=== PATIENT | male | born 1965 | race Caucasian/White ===

== ENCOUNTER 2018-07-21 06:58 | Emergency (ER) | payer OTHER ==
[~2018-07-21] VITALS: Ht 175.3 cm; Wt 118.0 kg
[2018-07-21] MEDS ORDERED: SOD CHLORIDE 0.9% 1,000 ML IV STA (07:07)
[2018-07-21] MEDS ORDERED: PANTOPRAZOLE IV 80 MG in SOD CHLORIDE 0.9% 100 ML IVPB STA (07:07)
[2018-07-21] MEDS ORDERED: FAMOTIDINE 20 MG INJ IV STA (07:07)
[2018-07-21] MEDS ORDERED: ONDANSETRON 4 MG INJ IV STA (07:07)
[2018-07-21] MEDS ORDERED: HYDROmorphONE 1 MG/ML SYG IV STA (07:07)
[2018-07-21] MEDS ORDERED: SOD CHLORIDE 0.9% 100 ML ONE (07:23)
[2018-07-21] MEDS ORDERED: IODIXANOL LOCM 100 ML BTL ONE (07:23)
--- NOTE | 2018-07-21 07:30 | ERD ---
ER Documentation Chief Complaint Chief Complaint HPI This is a 52-year-old male with a past medical history of hypertension. The pat becky presents to the emergency department complaining of severe abdominal pain that has been intermittent for the past 24 hours. The patient was at work when he suddenly developed a worsening of the abdominal pain. He stated it was localized around the umbilicus. The pain began to radiate to both the left and the right lower quadrant. He states the pain is 10 out of 10 in intensity. The patient had an episode of nonbloody nonbilious emesis. The patient was brought in by EMS. Initially they stated that the patient had an episode of bloody emesis however the patient states he did not experience any blood in his emesis but rather had developed a bloody nose that resolved with pressure. The patient denies any history of alcohol abuse. The patient indicates he has had similar pain in the past but had never lasted this long or this intense. He did not take any analgesic medication prior to arrival. There is no alleviating or exacerbating factors to the pain. He said no recent fever shaking or chills. He denies a productive or nonproductive cough ROS All systems reviewed and are negative except as per history of present illness. Medications Home Meds Active Scripts Naproxen* (Naprosyn*) 500 Mg Tablet, 500 MG PO BID PRN for PAIN AND/OR INFLAMMATION, #30 TAB Prov:CJ GOEL MD 07/21/18 Reported Medications Lisinopril* (Lisinopril*) 20 Mg Tablet, 20 MG PO DAILY, #30 TAB 07/21/18 Allergies Allergies: Coded Allergies: No Known Allergy (Unverified , 07/21/18) Physical Exam Vitals Vital Signs Date Temp Pulse Resp B/P (MAP) Pulse Ox O2 O2 Flow FiO2 Time Delivery Rate 07/21/18 98.3 74 17 130/90 96 Room Air 07:46 (103) 07/21/18 98.3 93 17 130/90 98 07:46 (103) Physical Exam Constitutional:Well-developed. Well-nourished. Patient appear to be in a significant amount of discomfort secondary to pain HEENT:Normocephalic. Atraumatic.Pupils were equal round reactive to light. Moist mucous membranes.No tonsillar exudates. Neck: No nuchal rigidity. No lymphadenopathy. No posterior cervical spine tenderness or step-offs. Respiratory: Not using accessory muscles of respiration.Lungs were clear to auscultation bilaterally. No rhonchi. No rales. No wheezing. Cardiovascular: Regular rate regular rhythm.No murmurs. No rubs were appreciated.S1, S2 normal. Distal pulses are palpable 2+ bilaterally. GI: Abdomen was obese with a reducible umbilical hernia.. Voluntary guarding. Hypoactive bowel sounds. Tenderness in the periumbilical region. No tenderness in the right lower quadrant over McBurney's point. Psoas sign negative. Obturator sign negative. Non Distended. No pulsatile abdominal masses or bruits. No rebound. Muscle skeletal: Full range of motion of both the upper and lower extremities bilaterally.Normal muscle tone.No assymetrical calf tenderness or swelling. Skin: No petechia, no purpura. No lesions on the palms or the soles of the feet. No maculopapular rash. NEURO: Patient was alert, awake, orientated x3.No facial droop. Gait observed and normal with no ataxia.Speech had regular rate and rhythm. No focal neurological deficits. Result Diagram: 07/21/1872907/21/1830 Results 24 hrs Laboratory Tests Test 07/21/18 07:30 07/21/18 07:56 White Blood Count 4.8 10^3/ul Red Blood Count 4.98 10^6/ul Hemoglobin 14.8 g/dl Hematocrit 44.5 % Mean Corpuscular Volume 89.4 fl Mean Corpuscular Hemoglobin 29.7 pg Mean Corpuscular Hemoglobin Concent 33.3 g/dl Red Cell Distribution Width 14.4 % Platelet Count 230 10^3/UL Mean Platelet Volume 11.4 fl Immature Granulocytes % 0.200 % Neutrophils % 53.7 % Lymphocytes % 36.1 % Monocytes % 7.7 % Eosinophils % 1.7 % Basophils % 0.6 % Nucleated Red Blood Cells % 0.0 /100WBC Immature Granulocytes # 0.010 10^3/ul Neutrophils # 2.6 10^3/ul Lymphocytes # 1.7 10^3/ul Monocytes # 0.4 10^3/ul Eosinophils # 0.1 10^3/ul Basophils # 0.0 10^3/ul Nucleated Red Blood Cells # 0.0 10^3/ul Prothrombin Time 13.3 Sec Prothrombin Time Ratio 1.0 INR International Normalized Ratio 1.00 Activated Partial Thromboplast Time 25.2 Sec Sodium Level 140 mmol/L Potassium Level 4.0 mmol/L Chloride Level 110 mmol/L Carbon Dioxide Level 24 mmol/L Anion Gap 6 Blood Urea Nitrogen 17 mg/dl Creatinine 0.84 mg/dl Est Glomerular Filtrat Rate mL/min > 60 mL/min Glucose Level 114 mg/dl Calcium Level 8.8 mg/dl Total Bilirubin 0.1 mg/dl Direct Bilirubin 0.00 mg/dl Indirect Bilirubin 0.1 mg/dl Aspartate Amino Transf (AST/SGOT) 33 IU/L Alanine Aminotransferase (ALT/SGPT) 38 IU/L Alkaline Phosphatase 109 IU/L Troponin I < 0.012 ng/ml Total Protein 7.4 g/dl Albumin 4.1 g/dl Globulin 3.30 g/dl Albumin/Globulin Ratio 1.24 Amylase Level 73 U/L Lipase 53 U/L POC Venous Lactate 0.8 mmol/L Current Medications Medications Dose Sig/Fani Start Time Status Last (Trade) Ordered Route PRN Stop Time Admin Dose Reason Admin Sodium 1,000 ml @ Q1H STAT 07/21/18 DC 07/21/18 Chloride 1,000 mls/hr IV 07:07 07:17 07/21/18 08:06 1 mg ONCE STAT 07/21/18 DC 07/21/18 Hydromorphone IV 07:07 07:18 HCl 07/21/18 07:08 (Dilaudid) Ondansetron 4 mg ONCE STAT 07/21/18 DC 07/21/18 HCl (Zofran IV 07:07 07:17 Inj) 07/21/18 07:09 Famotidine 20 mg ONCE STAT 07/21/18 DC 07/21/18 (Pepcid Iv) IV 07:07 07:17 07/21/18 07:09 Pantoprazole 100 ml @ ONCE STAT 07/21/18 DC 07/21/18 80 mg/Sodium 400 mls/hr IVPB 07:07 08:01 Chloride 07/21/18 07:21 IV Flush 10 ml STK-MED 07/21/18 DC 07/21/18 (NS 10 ml) ONCE .ROUTE 07:23 07:37 07/21/18 07:24 Sodium 100 ml @ ud STK-MED 07/21/18 DC 07/21/18 Chloride ONCE .ROUTE 07:23 07:37 07/21/18 07:24 Iodixanol 100 ml STK-MED 07/21/18 DC 07/21/18 (Visipaque ONCE .ROUTE 07:23 07:37 Locm) 07/21/18 07:24 Procedures/MDM This patient presented to the emergency department with abdominal pain and was seen and evaluated by myself. My differential diagnosis included but was not limited to abdominal aortic aneurysm, appendicitis, pancreatitis, perforated peptic ulcer, perforated viscus, Boerhaave's syndrome or visceral pain such as diverticulitis, DKA, esophagitis, hepatitis or bowel obstruction. The patient was placed on a school lunch monitor, continuous pulse oximetry, and IV access was established by nursing staff. Patient was given intravenous Dilaudid for analgesic control. Due to the severity of the patient's pain with voluntary guarding I did indicate to the optical manufacturing technician that the patient would require going to CT scan immediately prior to receiving the patient's BUN and creatinine. CT scan was reviewed by myself and the radiologist indicate the followin. Large 4 cm calcified gallstone with an otherwise unremarkable gallbladder and no biliary ductal dilation. 2. Diverticulosis of the left colon without CT evidence diverticulitis. Unremarkable appendix. 3. Periumbilical fat-containing hernia without herniated bowel or strangulation. I obtained a twelve-lead EKG tracing to rule out for atypical myocardial infar ction. 12 Lead EKG tracing ordered and reviewed by myself showed: Normal sinus rhythm of 73 bpm and no arrhythmia. MI interval normal. QRS duration normal. No ST segment elevation No ST segment depression. No changes consistent with acute ischemia. The patient's pain had significantly improved. I indicates the patient symptoms result of diverticulosis. There is no signs of strangulation of his hernia as it was easily reducible. The patient was discharged home in fair condition. They were instructed to return to the emergency department at any time if there was any worsening of their condition. The patient stated they would follow up with their PCP in the next 24-48 hours to initiate a suitable medication regimen under the care of their PCP as well as to allow their PCP to monitor any drug reactions. The patient was discharged home with prescriptions after they gave informed consent to the new medication. They were also fully informed by myself on the adverse effects and adverse drug interactions in order to provide adequate safeguards to prevent possible adverse reactions to medications. Departure Diagnosis: Primary Impression: Diverticulosis of colon Condition: CJ Gannon MD Jul 21, 2018 07:30
[2018-07-21 07:46] VITALS: Ht 175.3 cm; Wt 118.0 kg
[2018-07-21] MEDS ORDERED: LISI-471 PO (07:50)
[2018-07-21] MEDS ORDERED: NAPR-985 PO (08:22)
[2018-07-21 08:58] VITALS: BP 114/80; PULSE 80; RESP 23
[2018-07-21] MEDS ORDERED: LIDOCAINE/MYLANTA 40 ML BTL PO STA (08:59)
[2018-07-21] MEDS ORDERED: BELLADONNA/PHENOBARBITAL TAB PO STA (08:59)
[2018-07-21] MEDS ORDERED: HYDROCODONE/APAP (5/325) TAB PO ONE (09:00)
== END 2018-07-21 09:10 | disposition home or self-care (01) ==
LOC: E/R 06:58
DX: K57.30 Diverticulosis of large intestine without perforation or abscess without bleeding (principal); I10 Essential (primary) hypertension
CPT/HCPCS: 36415; 74177; 80053; 82150; 83605; 83690; 84484; 85025; 85610; 85730; 93005; 96374; 96375; C9113; J1170; J2405; J7030; Q9967; Z7502; Z7610